=== PATIENT | male | born 1970 | race American Indian/Alaskan Native ===

== ENCOUNTER 2017-07-19 20:30 | Emergency (ER) | payer SELFPAY ==
[2017-07-19] MEDS ORDERED: CATAPRES PO ONE (21:28)
[2017-07-19 22:24] LABS: Basophils % (Auto) 0.1 % (0.0-1.8); Eosinophils # (Auto) 0.4 K/mm3 (0.0-0.4); Eosinophils % (Auto) 4.5 % (0.0-4.3); Hematocrit 43.3 % (35.5-45.6); Hemoglobin 13.6 gm/dl (11.8-15.2); Lymphocytes # (Auto) 1.9 K/mm3 (1.2-5.4); Mean Corpuscular HGB Conc 32 % (32-34); Mean Corpuscular Hemoglobin 26 pg (28-32); Mean Corpuscular Volume 83 fl (84-94); Monocytes # (Auto) 0.6 K/mm3 (0.0-0.8); Monocytes % (Auto) 6.5 % (0.0-7.3); Platelet Count 257 K/mm3 (140-440); Red Blood Count 5.23 M/mm3 (3.65-5.03); Red Cell Distribution Width 13.9 % (13.2-15.2)
[2017-07-19 22:39] LABS: BUN/Creatinine Ratio 11; Blood Urea Nitrogen 17 mg/dL (9-20); Hemolysis Index 0
[2017-07-19] MEDS ORDERED: NORVASC PO ONE (23:12)
--- NOTE | 2017-07-19 23:18 | Emergency Department Report ---
HPI - General Chief Complaint: Skin Rash Time Seen by Provider: 07/19/17 22:57 - HPI HPI: Room 20 The patient is a 46-year-old male presented with a chief complaint of rash and itching in his groin. The patient states for the past 3 days he's had itching over some of his extremities. The patient states he attributed this to using a dirty washcloth. Today the patient noticed a rash in his groin was itching prompting him to come in for evaluation. Patient denies fever, dysuria or hematuria. 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 - Family History Family history: no significant - Social History Smoking Status: Never Smoker Substance Use Type: None (denies illicit drug use) - Medications Home Medications: Home Medications Medication Instructions Recorded Confirmed Last Taken Type Cephalexin [Keflex] 500 mg PO Q6HR #28 capsule 07/19/17 Unknown Rx Nystatin Oint [Mycostatin Oint] 1 applicatio TP TID #1 tube 07/19/17 Unknown Rx Prednisone [predniSONE 10 mg 10 mg PO .TAPER #1 tab.ds.pk 07/19/17 Unknown Rx (6-Day Pack, 21 Tabs)] amLODIPine [Norvasc] 5 mg PO DAILY #90 tab 07/19/17 Unknown Rx ED Review of Systems ROS: Stated complaint: RASH GROIN AREA Other details as noted in HPI Constitutional: denies: fever Gastrointestinal: denies: abdominal pain Genitourinary: denies: dysuria, hematuria Skin: rash Physical Exam - Physical Exam Vital Signs: Vital Signs 07/19/17 07/19/17 21:17 21:41 Temperature 98.4 F Pulse Rate 89 89 Respiratory 18 Rate Blood Pressure 191/121 194/121 O2 Sat by Pulse 99 Oximetry Physical Exam: GENERAL: The patient is well-developed well-nourished male lying on stretcher not appearing to be in acute distress. [] HEENT: Normocephalic. Atraumatic. Extraocular motions are intact. Patient has moist mucous membranes. NECK: Supple. Trachea midline CHEST/LUNGS: Clear to auscultation. There is no respiratory distress noted. HEART/CARDIOVASCULAR: Regular. There is no tachycardia. There is no gallop rub or murmur. ABDOMEN: Abdomen is soft, nontender. Patient has normal bowel sounds. There is no abdominal distention. SKIN: There are fine papules visualized overlying the left upper extremity. Does not appear consistent with scabies. The patient's groin is erythematous consistent with intertriginous candidiasis. There is no edema. There is no diaphoresis. NEURO: The patient is awake, alert, and oriented. The patient is cooperative. The patient has normal speech MUSCULOSKELETAL: There is no evidence of acute injury. ED Course Vital Signs 07/19/17 07/19/17 21:17 21:41 Temperature 98.4 F Pulse Rate 89 89 Respiratory 18 Rate Blood Pressure 191/121 194/121 O2 Sat by Pulse 99 Oximetry ED Medical Decision Making - Lab Data Result diagrams: 07/19/17 21:57 07/19/17 21:57 Laboratory Tests 07/19/17 07/19/17 21:57 21:57 WBC 8.7 RBC 5.23 H Hgb 13.6 Hct 43.3 MCV 83 L MCH 26 L MCHC 32 RDW 13.9 Plt Count 257 Lymph % (Auto) 22.0 [place] % (Auto) 6.5 Eos % (Auto) 4.5 H Baso % (Auto) 0.1 Lymph # 1.9 [place] # 0.6 Eos # 0.4 Baso # 0.0 Seg Neutrophils % 66.9 Seg Neutrophils # 5.8 Sodium 141 Potassium 3.7 Chloride 103.6 Carbon Dioxide 25 Anion Gap 16 BUN 17 Creatinine 1.5 Estimated GFR > 60 BUN/Creatinine Ratio 11 Glucose 93 Calcium 9.0 - Differential Diagnosis intertriginous candidiasis, allergic reaction, Critical care attestation.: If time is entered above; I have spent that time in minutes in the direct care of this critically ill patient, excluding procedure time. ED Disposition Clinical Impression: Tinea cruris, Hypertension Disposition: DC- TO HOME OR SELFCARE Is pt being admited?: No Does the pt Need Aspirin: No Condition: Stable Instructions: Jock Itch (ED), Hypertension (ED) Additional Instructions: Return to the emergency department immediately should you develop worsening symptoms, fever, inability to tolerate food or liquid or any other concerns. Prescriptions: amLODIPine [Norvasc] 5 mg PO DAILY #90 tab Cephalexin [Keflex] 500 mg PO Q6HR #28 capsule Nystatin Oint [Mycostatin Oint] 1 applicatio TP TID #1 tube Prednisone [predniSONE 10 mg (6-Day Pack, 21 Tabs)] 10 mg PO .TAPER #1 tab.ds.pk Referrals: PRIMARY CARE, [Primary Care Provider] - 3-5 Days [facility] [Outside] - 3-5 Days Time of Disposition: 23:24
[2017-07-20 00:41] VITALS: BP 189/101
== END 2017-07-20 00:05 | disposition home or self-care (01) ==
LOC: ED 20:30
DX: B35.4 Tinea corporis (principal); I10 Essential (primary) hypertension
CPT/HCPCS: 36415; 80048; 85025; 93005; 93010; 99283